=== PATIENT | female | born 1950 | race Caucasian/White ===

== ENCOUNTER → 2021-03-01 | Outpatient (CLI) | payer OTHER ==
[~2021-03-01] MED LIST: LISINOPRIL5 MG PO; SUPPLEMENTS PO
== END ==
LOC: CT 16:20
PROVIDERS: ATTEND Physician Assistant
DX: S42.231A 3-part fracture of surgical neck of right humerus, initial encounter for closed fracture (principal)

== ENCOUNTER 2021-04-28 11:00 | Outpatient (RCR) | payer MEDICARE | END 2021-04-29 | LOC: PT 11:00 | PROVIDERS: ATTEND Physician Assistant Medical | DX: S42.291D Other displaced fracture of upper end of right humerus, subsequent encounter for fracture with routine healing (principal) | CPT/HCPCS: 97139 ==

== ENCOUNTER → 2021-05-30 | Outpatient (RCR) | payer MEDICARE | LOC: OT 05-01 10:00 → PT 05-01 10:50 | PROVIDERS: ATTEND Physician Assistant | DX: S42.291D Other displaced fracture of upper end of right humerus, subsequent encounter for fracture with routine healing (principal) | CPT/HCPCS: 97139 ==